=== PATIENT | male | born 1960 | race Two or more races ===

== ENCOUNTER 2024-04-10 11:33 | Emergency (ER) | payer OTHER ==
[~2024-04-10] VITALS: Ht 157.5 cm; Wt 68.0 kg
== END 2024-04-10 18:00 | disposition home or self-care (01) ==
LOC: ER 11:34
DX: S00.83XA Contusion of other part of head, initial encounter (principal); W18.39XA Other fall on same level, initial encounter; Y93.89 Activity, other specified; Y92.012 Bathroom of single-family (private) house as the place of occurrence of the external cause